=== PATIENT | female | born 1945 | race Two or more races ===

== ENCOUNTER 2018-09-16 06:09 | Day surgery (SDC) | payer MEDICARE, OTHER ==
--- NOTE | 2018-09-14 10:20 | Pre-Procedure Note/Attestation ---
Pre-Procedure Note/Attestation Complete Prior to Procedure Planned Procedure: left Procedure Narrative: phaco with IOL Indications for Procedure Pre-Operative Diagnosis: cataract Attestation I attest that I discussed the nature of the procedure; its benefits; risks and complications; and alternatives (and the risks and benefits of such alternatives ), prior to the procedure, with the patient (or the patient's legal personal banking representative). I attest that, if there was a reasonable possibility of needing a blood transfusion, the patient (or the patient's legal personal banking representative) was given the [facility] standardized written summary, pursuant to the Mick Chireno Blood Safety Act ([place] Health and Safety Code # 1645, as amended). I attest that I re-evaluated the patient just prior to the surgery and that there has been no change in the patient's H&P, except as documented below: Jimi Alvarado MD Sep 14, 2018 10:20
--- NOTE | 2018-09-14 11:08 | Opthalmology H&P ---
Ophthalmology H&P H&P Chief Complaint: decreased vision in left eye HPI Vision Affects Ability to: read, focus/use eyes together, manage personal affairs HPI Narrative blurry vision Exam Visual Acuity: OD: 20/80 20/160 Tension: OD: 18 os;18 Eye Exam: normal OU: external exam, palpebral fissure-width, marginal reflex distance, levator function, corneas, anterior chambers; findings: lens Assessment/Plan Diagnosis: (1) Posterior subcapsular age-related cataract of left eye Treatment Plan: cataract extraction w/ lens implant Goals of Treatment: improvement of vision, enhance quality of life Attestation Attestation The risks and benefits of the surgery as well as alternative procedures were explained to the patient in detail. Jiim Alvarado MD Sep 14, 2018 11:08
[~2018-09-16] VITALS: Ht 154.9 cm; Wt 53.1 kg
[2018-09-16] VITALS (8 sets, daily range): BP systolic 112–159; BP diastolic 48–80
[2018-09-16] MEDS ORDERED: Proparacaine 0.5% Opth Soln 15ml LEFT EYE ONE (07:00)
[2018-09-16] MEDS ORDERED: Akten 3.5% 1ml Btl LEFT EYE ONE (07:00)
[2018-09-16] MEDS ORDERED: Tetracaine 0.5% Opth 4ml Soln LEFT EYE ONE (07:00)
[2018-09-16] MEDS: Phenylephrine 10% Opth Soln 5ml LEFT EYE SCH ×3 (09:03→09:19)
[2018-09-16] MEDS: Cyclopentolate 1% Opth Sol 2ml LEFT EYE SCH ×3 (09:03→09:19)
[2018-09-16] MEDS: Tropicamide 1% Opth 15ml Soln LEFT EYE SCH ×3 (09:03→09:19)
[2018-09-16] MEDS: Tobramycin Op Soln 0.3% 5ml LEFT EYE SCH ×3 (09:05→09:19)
[2018-09-16] MEDS: Diclofenac Sod 0.1% Op Soln LEFT EYE SCH ×3 (09:07→09:20)
[2018-09-16] MEDS ORDERED: LISINOPRIL-HCT1 EAC2 ORAL (09:29)
[2018-09-16] MEDS ORDERED: ASPIR 8181 MG ORAL (09:30)
[2018-09-16] MEDS ORDERED: LANTUS SOL100 UNIT/1 SUBQ (09:30)
[2018-09-16] MEDS ORDERED: PROLENSA1.6 ML OP (09:31)
[2018-09-16] MEDS ORDERED: [UNRECOGNIZED DRUG - OTHER] OP (09:33)
[2018-09-16] MEDS ORDERED: Povidone-Iodine 5% opth solution ONE (09:47)
[2018-09-16] MEDS ORDERED: EPINEPHrine 1mg/1ml Amp ONE (09:47)
[2018-09-16] MEDS ORDERED: Sodium Hyaluronate 14 mg/ml 0.85ml ONE (09:47)
[2018-09-16] MEDS ORDERED: BSS 500ml btl ONE (09:47)
[2018-09-16] MEDS ORDERED: BSS 15ml BTL ONE (09:47)
[2018-09-16] MEDS ORDERED: LR 1000ml 1,000 ML IVLG SCH (09:58)
[2018-09-16] MEDS ORDERED: Pred Forte 1% Opth Susp 1ml ONE (10:00)
[2018-09-16] MEDS ORDERED: Propofol 200mg/20ml IV ONE (10:00)
[2018-09-16] MEDS ORDERED: Meperidine 50mg/ml Inj(FOR RIGORS ONLY) IVP PRN (10:00)
[2018-09-16] MEDS ORDERED: fentaNYL 100 mcg/2 mL IV PRN (10:00)
[2018-09-16] MEDS ORDERED: Metoclopramide 10mg/2ml Inj IVP PRN (10:00)
[2018-09-16] MEDS ORDERED: Hydromorphone 0.5mg/0.5ml inj IVP PRN (10:00)
[2018-09-16] MEDS ORDERED: Pilocarpine 2% Opth 15ml Soln ONE (10:00)
[2018-09-16] MEDS ORDERED: Dexamethasone 4mg/ml vial ONE (10:00)
[2018-09-16] MEDS ORDERED: Midazolam 2mg/2ml Inj IVP PRN (10:00)
[2018-09-16] MEDS ORDERED: DiphenhydrAMINE 50mg/ml Inj IVP PRN (10:00)
[2018-09-16] MEDS ORDERED: Lidocaine 1% MPF 10mg/ml 5ml ONE (10:00)
[2018-09-16] MEDS ORDERED: Ketorolac 30mg Inj IV PRN ×2 (10:00)
[2018-09-16] MEDS ORDERED: LORazepam Inj 2mg/ml 1ml IV PRN (10:00)
[2018-09-16] MEDS ORDERED: Norco 5mg/325mg tab ORAL PRN (10:00)
[2018-09-16] MEDS ORDERED: HYDROcodone/Acetamin 7.5/325 tab ORAL PRN (10:00)
[2018-09-16] MEDS ORDERED: LR 1000ml ONE (10:00)
[2018-09-16] MEDS ORDERED: Atropine Sulfate 0.4mg/ml inj IVP PRN (10:00)
[2018-09-16] MEDS ORDERED: Maxitrol Opth Oint 3.5gm ONE (10:00)
[2018-09-16] MEDS ORDERED: oxyCODONE HCL/Acetaminophen 5/325mg ORAL PRN (10:00)
--- NOTE | 2018-09-16 10:01 | Anethesia Preoperative Eval ---
Anesthesia Pre-op PMH/ROS General Date of Evaluation: Sep 16, 2018 Time of Evaluation: 09:49 Anesthesiologist: Jennifer ASA Score: ASA 3 Mallampati Score Class I : Soft palate, uvula, fauces, pillars visible Class II: Soft palate, uvula, fauces visible Class III: Soft palate, base of uvula visible Class IV: Only hard plate visible Mallampati Classification: Class II Surgeon: Jenny Diagnosis: CAT OS Surgical Procedure: CAT EXT IOL OS Anesthesia History: none Family History: no anesthesia problems Allergies: Coded Allergies: PENICILLINS (Verified Allergy, Severe, hives, 09/16/18) CIPROFLOXACIN (Verified Allergy, Intermediate, itching, 09/16/18) LATEX (Verified Allergy, Intermediate, itching, 09/16/18) CRAB (Verified Adverse Reaction, Intermediate, "throat closes up", ) Cantaloupe (Verified Adverse Reaction, Intermediate, "throat closes up", 09/16/18) Medications: see eMAR Patient NPO?: Yes Past Medical History Cardiovascular: Reports: HTN, other - HL Endocrine: Reports: DM HEENT: Reports: cataract (L), cataract (R) PSxH Narrative: Vitrectomy OS Anesthesia Pre-op Phys. Exam Physician Exam Last Vital Signs Date Time Temp Pulse Resp B/P (MAP) Pulse Ox O2 Delivery O2 Flow Rate FiO2 09/16/18 09:26 97.6 68 18 159/80 100 Room Air Constitutional: NAD Neurologic: CN 2-12 intact Cardiovascular: RRR Respiratory: CTA Gastrointestinal: S/NT/ND Airway Exam Mallampati Score: Class II MO: limited ROM: limited Teeth: missing, intact Anesthesia Pre-op A/P Risk Assessment & Plan Assessment: ASA 3 Plan: GA Status Change Before Surgery: No Pritesh Rodriguez MD Sep 16, 2018 10:01
--- NOTE | 2018-09-16 10:03 | Immediate Post-Op Evaluation ---
Immediate Post-Op Evalulation Immediate Post-Op Evalulation Procedure: CAT EXT IOL OS Date of Evaluation: Sep 16, 2018 Time of Evaluation: 10:48 IV Fluids: 200 LR Blood Products: 0 Estimated Blood Loss: 1 Urinary Output: 0 Blood Pressure Systolic: 120 Blood Pressure Diastolic: 56 Pulse Rate: 62 Respiratory Rate: 16 O2 Sat by Pulse Oximetry: 99 Temperature (Fahrenheit): 97.9 Pain Score (1-10): 1 Nausea: No Vomiting: No Complications 0 Patient Status: awake, reacts, patent, none Hydration Status: adequate Pritesh Rodriguez MD Sep 16, 2018 10:03
--- NOTE | 2018-09-16 10:05 | 48 Hour Post Anesthesia Eval ---
Post Anesthesia Evaluation Procedure: CAT EXT IOL OS Date of Evaluation: Sep 16, 2018 Time of Evaluation: 12:53 Blood Pressure Systolic: 132 0: 74 Pulse Rate: 61 Respiratory Rate: 18 Temperature (Fahrenheit): 98.2 O2 Sat by Pulse Oximetry: 99 Airway: patent Nausea: No Vomiting: No Pain Intensity: 1 Hydration Status: adequate Cardiopulmonary Status: STABLE Mental Status/LOC: patient returned to baseline Follow-up Care/Observations: 0 Post-Anesthesia Complications: 0 Follow-up care needed: ready to discharge Pritesh Rodriguez MD Sep 16, 2018 10:05
--- NOTE | 2018-09-17 12:49 | Brief Operative Note ---
Immediate Post Operative Note Operative Note Chief Complaint: blurry vision Pre-op Diagnosis: cataract, OS Procedure: phaco with IOL, os Post-op Diagnosis: pseudophakia Post-op Diagnosis: same as pre-op Findings: consistent w/pre-op dx studies Surgeon: Jenny Anesthesiologist: Alton Anesthesia: MAC Specimen: none Complications: none Condition: stable Fluids: LR Estimated Blood Loss: none Drains: none Implant(s) used?: Yes Jimi Alvarado MD Sep 17, 2018 12:49
--- NOTE | 2018-09-17 12:51 | Operative Note - PDOC ---
Operative Note Operative Note Date of Operation/Procedure: Sep 16, 2018 Chief Complaint: blurry vision Pre-op Diagnosis: cataract, OS Procedure: phaco with IOL, os Post-op Diagnosis: pseudophakia Post-op Diagnosis: same as pre-op Operative Findings: consistent w/pre-op dx studies Surgeon: Jenny Anesthesiologist: Alton Anesthesia: MAC Specimen: none Complications: none Condition: stable Fluids: LR Estimated Blood Loss: none Drains: none Implant(s) used?: Yes Indications for Procedure cataract Description of Procedure This patient has been complaining visually significant cataract in the affected eye with the best corrected visual acuity under moderate glare conditions worse. The patient complains of difficulties with glare in performing activities of daily living and wants to manage personal affairs with comfort and accuracy and see well enough to move with safety at home and outdoors. The risks, benefits and alternatives of the procedure were discussed with the patient in the office prior to scheduling surgery. All questions from the patient were answered after the surgical procedure was explained in detail. The risks of the procedure as explained to the patient include, but are not limited to, pain, infection, bleeding, loss of vision, retinal detachment, need for further surgery, loss of lens nucleus, double vision, etc. Alternative procedures were discussed which include, to do nothing or seek a second opinion. Informed consent for this procedure was obtained from the patient. The patient was referred to a primary care physician for a cardiopulmonary clearance prior to surgery, after proper evaluation was done patient was properly scheduled for outpatient surgery. The patient was brought to the operating room where the anesthesiologist established I.V. lines and cardiac monitoring leads. Mild intravenous sedation was administered. The patient was then prepared with a 5% solution of povidone -iodine to the conjunctival fornix and lashes, and a 5% solution of povidone- iodine to the lids and periorbital skin. The patient was then draped in the usual sterile fashion. A lid speculum was then placed in the operative eye. A keratome blade was then used to create a biplanar incision into the anterior chamber. Viscoelastics was then instilled into the anterior chamber. A capsulorrhexis was then fashioned with an utrata forceps. BSS and a G-27 cannula were then used to hydrodissect and hydro delineate the lens. Paracentesis incision was made at 3 o'clock with sharp blade. The phacoemulsification unit, after being properly adjusted and tested, was then used to emulsify the nucleus followed by aspiration and irrigation of residual cortical material. Healon was then instilled into the anterior chamber. The corneal wound was then enlarged to the size of the optic with the radha keratome blade. The intraocular lens was then inspected for right power and size and thought to be satisfactory. Then the lens was gently placed in the capsular bag. Positioning within the capsular bag was confirmed by direct visualization. Optic centration was accomplished with a Sinskey hook. Viscoelastics was removed from the anterior chamber using the irrigation and aspiration unit. The corneal wound was then tested for leaks and none were found. The lid speculum were then removed. Sponge and needle counts were correct. An eye patch and shield were placed over the operative eye. The patient was taken to the recovery room in stable condition. There were no complications. The patient tolerated the procedure well. The patient was then transferred to the ambulatory surgery unit in stable and satisfactory condition , was given detailed written instructions and asked to follow up in the office the next day. Jimi Alvarado MD Sep 17, 2018 12:51
== END 2018-09-16 12:25 | disposition home or self-care (01) ==
LOC: SUR 06:09
DX: H25.042 Posterior subcapsular polar age-related cataract, left eye (principal); E11.22 Type 2 diabetes mellitus with diabetic chronic kidney disease; I12.9 Hypertensive chronic kidney disease with stage 1 through stage 4 chronic kidney disease, or unspecified chronic kidney disease; N18.3 Chronic kidney disease, stage 3 (moderate); E03.9 Hypothyroidism, unspecified; Z88.1 Allergy status to other antibiotic agents; Z91.040 Latex allergy status; Z88.0 Allergy status to penicillin; Z91.018 Allergy to other foods
CPT/HCPCS: 66984; 82962; J0171; J1100; J2250; J2704; J3370; V2632; 94003; 94150

== ENCOUNTER 2018-12-02 05:33 | Day surgery (SDC) | payer MEDICARE, OTHER ==
--- NOTE | 2018-11-29 14:32 | Pre-Procedure Note/Attestation ---
Pre-Procedure Note/Attestation Complete Prior to Procedure Planned Procedure: right Procedure Narrative: Cataract extraction With Intraocular Lens Implant Right Eye Indications for Procedure Pre-Operative Diagnosis: Cataract Right Eye Attestation I attest that I discussed the nature of the procedure; its benefits; risks and complications; and alternatives (and the risks and benefits of such alternatives ), prior to the procedure, with the patient (or the patient's legal passenger service representative). I attest that, if there was a reasonable possibility of needing a blood transfusion, the patient (or the patient's legal passenger service representative) was given the [facility] standardized written summary, pursuant to the Mick Carey Blood Safety Act ([place] Health and Safety Code # 1645, as amended). I attest that I re-evaluated the patient just prior to the surgery and that there has been no change in the patient's H&P, except as documented below: Jimi Alvarado MD Nov 29, 2018 14:32
--- NOTE | 2018-11-29 14:37 | Opthalmology H&P ---
Ophthalmology H&P H&P Chief Complaint: decreased vision in right eye HPI Vision Affects Ability to: read Past Ocular History: retinal problems - PDR/ Macula Edema OU HPI Narrative Blurry Vision Exam Visual Acuity: OD 20/125 OS 20/30 Tension: OD 18 OS 14 Eye Exam: normal OU: external exam, palpebral fissure-width, marginal reflex distance, levator function, corneas, anterior chambers, lens - Cortical Cataract OD; findings: lens - Cortical Cataract OD, fundus exam - pdr/macular edema ou Assessment/Plan Treatment Plan: cataract extraction w/ lens implant Goals of Treatment: improvement of vision, enhance quality of life Attestation Attestation The risks and benefits of the surgery as well as alternative procedures were explained to the patient in detail. Jimi Alvarado MD Nov 29, 2018 14:37
[2018-12-02] VITALS (8 sets, daily range): BP systolic 141–161; BP diastolic 54–72
[~2018-12-02] VITALS: Ht 154.9 cm; Wt 54.4 kg
[~2018-12-02 05:33] MED LIST: ASPIR 8181 MG ORAL; LANTUS SOL100 UNIT/1 SUBQ; LISINOPRIL-HCT1 EAC2 ORAL; PROLENSA1.6 ML OP; [UNRECOGNIZED DRUG - OTHER] OP
[2018-12-02] MEDS: Cyclopentolate 1% Opth Sol 2ml RIGHT EYE SCH ×3 (06:58→07:20)
[2018-12-02] MEDS: Tobramycin Op Soln 0.3% 5ml RIGHT EYE SCH ×3 (06:59→07:21)
[2018-12-02] MEDS: Tropicamide 1% Opth 15ml Soln RIGHT EYE SCH ×3 (06:59→07:20)
[2018-12-02] MEDS: Phenylephrine 10% Opth Soln 5ml RIGHT EYE SCH ×3 (06:59→07:21)
[2018-12-02] MEDS ORDERED: Tetracaine 0.5% Opth 4ml Soln LEFT EYE ONE (07:00)
[2018-12-02] MEDS ORDERED: Diclofenac Sod 0.1% Op Soln RIGHT EYE SCH (07:00)
[2018-12-02] MEDS ORDERED: Tetracaine 0.5% Opth 4ml Soln RIGHT EYE ONE (07:00)
[2018-12-02] MEDS ORDERED: Dexamethasone 4mg/ml vial ONE (07:00)
[2018-12-02] MEDS ORDERED: Cyclopentolate 1% Opth Sol 2ml LEFT EYE SCH (07:00)
[2018-12-02] MEDS ORDERED: Akten 3.5% 1ml Btl LEFT EYE ONE (07:00)
[2018-12-02] MEDS ORDERED: Proparacaine 0.5% Opth Soln 15ml RIGHT EYE ONE (07:00)
[2018-12-02] MEDS ORDERED: Diclofenac Sod 0.1% Op Soln LEFT EYE SCH (07:00)
[2018-12-02] MEDS ORDERED: Pred Forte 1% Opth Susp 1ml ONE (07:00)
[2018-12-02] MEDS ORDERED: Pilocarpine 1% Opth 15ml Soln ONE (07:00)
[2018-12-02] MEDS ORDERED: Phenylephrine 10% Opth Soln 5ml LEFT EYE SCH (07:00)
[2018-12-02] MEDS ORDERED: Maxitrol Opth Oint 3.5gm ONE (07:00)
[2018-12-02] MEDS ORDERED: Tobramycin Op Soln 0.3% 5ml LEFT EYE SCH (07:00)
[2018-12-02] MEDS ORDERED: Tropicamide 1% Opth 15ml Soln LEFT EYE SCH (07:00)
[2018-12-02] MEDS ORDERED: Proparacaine 0.5% Opth Soln 15ml LEFT EYE ONE (07:00)
[2018-12-02] MEDS ORDERED: Akten 3.5% 1ml Btl RIGHT EYE ONE (07:00)
[2018-12-02] MEDS ORDERED: Lidocaine 4% Amp ONE (07:21)
[2018-12-02] MEDS ORDERED: Carbachol 0.01% Op Soln 1.5ml vial ONE (07:21)
[2018-12-02] MEDS ORDERED: EPINEPHrine 1mg/1ml Amp ONE (07:21)
[2018-12-02] MEDS ORDERED: acetaZOLAMIDE 500mg Inj ONE (07:21)
[2018-12-02] MEDS ORDERED: Lidocaine 2% MPF 5ml Vial INJ ONE (07:21)
[2018-12-02] MEDS ORDERED: BSS 500ml btl ONE (07:22)
[2018-12-02] MEDS ORDERED: Sodium Hyaluronate 14 mg/ml 0.85ml ONE (07:22)
[2018-12-02] MEDS ORDERED: Povidone-Iodine 5% opth solution ONE (07:22)
[2018-12-02] MEDS ORDERED: Bupivacaine 0.75% 30ml vial INJ ONE (07:22)
[2018-12-02] MEDS ORDERED: BSS 15ml BTL ONE (07:22)
[2018-12-02] MEDS ORDERED: LR 1000ml ONE (07:30)
[2018-12-02] MEDS ORDERED: Midazolam 2mg/2ml Inj ONE (07:37)
[2018-12-02] MEDS ORDERED: fentaNYL 100 mcg/2 mL IV ONE (07:37)
--- NOTE | 2018-12-02 08:03 | Anethesia Preoperative Eval ---
Anesthesia Pre-op PMH/ROS General Date of Evaluation: Dec 02, 2018 Time of Evaluation: 07:30 Anesthesiologist: power ASA Score: ASA 3 Mallampati Score Class I : Soft palate, uvula, fauces, pillars visible Class II: Soft palate, uvula, fauces visible Class III: Soft palate, base of uvula visible Class IV: Only hard plate visible Mallampati Classification: Class II Surgeon: nasima Diagnosis: cataract Surgical Procedure: cataract extraction with IOL Anesthesia History: none Family History: no anesthesia problems Allergies: Coded Allergies: PENICILLINS (Verified Allergy, Severe, hives, 09/16/18) CIPROFLOXACIN (Verified Allergy, Intermediate, itching, 09/16/18) LATEX (Verified Allergy, Intermediate, itching, 09/16/18) CRAB (Verified Adverse Reaction, Intermediate, "throat closes up", ) Cantaloupe (Verified Adverse Reaction, Intermediate, "throat closes up", 09/16/18) Medications: see eMAR Patient NPO?: Yes NPO Date: Dec 02, 2018 NPO Time: 00:01 Past Medical History Cardiovascular: Reports: HTN, CAD Pulmonary: Denies: asthma, COPD, JOY, other Gastrointestinal/Genitourinary: Reports: GERD; Denies: CRI, ESRD, other Neurologic/Psychiatric: Denies: dementia, CVA, depression/anxiety, TIA, other Endocrine: Reports: DM, hypothyroidism HEENT: Reports: cataract (R); Denies: cataract (L), glaucoma, OMAHA (L), OMAHA (R), other Hematology/Immune: Denies: anemia, DVT, bleeding disorder, other Musculoskeletal/Integumentary: Denies: OA, RA, DJD, DDD, edema, other PSxH Narrative: left eye surgery Anesthesia Pre-op Phys. Exam Physician Exam Last Vital Signs Date Time Temp Pulse Resp B/P (MAP) Pulse Ox O2 Delivery O2 Flow Rate FiO2 12/02/18 07:29 97.6 60 20 161/71 100 Room Air Constitutional: NAD Neurologic: CN 2-12 intact Cardiovascular: RRR Respiratory: CTA Gastrointestinal: S/NT/ND Airway Exam Mallampati Classification 2 Mallampati Score: Class II MO: full ROM: full Dentures: no upper, no lower Anesthesia Pre-op A/P Studies Pre-op Studies: EKG - sr Risk Assessment & Plan Plan: mac Pre-Antibiotics Drug: none Kristen Alexis CRNA Dec 02, 2018 08:03
[2018-12-02] MEDS ORDERED: fentaNYL 100 mcg/2 mL IV PRN (08:15)
--- NOTE | 2018-12-02 08:56 | Immediate Post-Op Evaluation ---
Immediate Post-Op Evalulation Immediate Post-Op Evalulation Procedure: right eye cataract extraction Date of Evaluation: Dec 02, 2018 Time of Evaluation: 08:32 IV Fluids: 600 Blood Pressure Systolic: 154 Blood Pressure Diastolic: 67 Pulse Rate: 71 Respiratory Rate: 12 O2 Sat by Pulse Oximetry: 98 Temperature (Fahrenheit): 97.4 Nausea: No Vomiting: No Complications none Patient Status: awake, reacts, patent Hydration Status: adequate Drug: none Kristen Alexis CRNA Dec 02, 2018 08:56
--- NOTE | 2018-12-02 11:27 | Immediate Post-Op Evaluation ---
Immediate Post-Op Evalulation Immediate Post-Op Evalulation Procedure: right eye cataract extraction Date of Evaluation: Dec 02, 2018 Time of Evaluation: 11:27 Nausea: No Vomiting: No Elena Christensen MD Dec 02, 2018 11:27
--- NOTE | 2018-12-02 11:53 | 48 Hour Post Anesthesia Eval ---
Post Anesthesia Evaluation Procedure: right eye cataract extraction Date of Evaluation: Dec 02, 2018 Time of Evaluation: 11:52 Blood Pressure Systolic: 149 0: 54 Pulse Rate: 71 Respiratory Rate: 14 O2 Sat by Pulse Oximetry: 96 Airway: patent Nausea: No Vomiting: No Hydration Status: adequate Cardiopulmonary Status: stable Mental Status/LOC: patient returned to baseline Post-Anesthesia Complications: none Follow-up care needed: N/A Kristen Alexis CRNA Dec 02, 2018 11:53
--- NOTE | 2018-12-04 09:53 | Brief Operative Note ---
Immediate Post Operative Note Operative Note Chief Complaint: blurry vision Pre-op Diagnosis: Cataract Right Eye Procedure: phaco with IOL, OD Post-op Diagnosis: Pseudophakia Post-op Diagnosis: same as pre-op Findings: consistent w/pre-op dx studies Surgeon: Jenny Anesthesiologist: Vanesa Anesthesia: MAC Specimen: none Complications: none Condition: stable Fluids: LR Estimated Blood Loss: none Drains: none Implant(s) used?: Yes Jimi Alvarado MD Dec 04, 2018 09:53
--- NOTE | 2018-12-04 09:54 | Operative Note - PDOC ---
Operative Note Operative Note Date of Operation/Procedure: Dec 02, 2018 Chief Complaint: blurry vision Pre-op Diagnosis: Cataract Right Eye Procedure: phaco with IOL, OD Post-op Diagnosis: Pseudophakia Post-op Diagnosis: same as pre-op Operative Findings: consistent w/pre-op dx studies Surgeon: Jenny Anesthesiologist: Vanesa Anesthesia: MAC Specimen: none Complications: none Condition: stable Fluids: LR Estimated Blood Loss: none Drains: none Implant(s) used?: Yes Indications for Procedure cataract Description of Procedure This patient has been complaining visually significant cataract in the affected eye with the best corrected visual acuity under moderate glare conditions worse. The patient complains of difficulties with glare in performing activities of daily living and wants to manage personal affairs with comfort and accuracy and see well enough to move with safety at home and outdoors. The risks, benefits and alternatives of the procedure were discussed with the patient in the office prior to scheduling surgery. All questions from the patient were answered after the surgical procedure was explained in detail. The risks of the procedure as explained to the patient include, but are not limited to, pain, infection, bleeding, loss of vision, retinal detachment, need for further surgery, loss of lens nucleus, double vision, etc. Alternative procedures were discussed which include, to do nothing or seek a second opinion. Informed consent for this procedure was obtained from the patient. The patient was referred to a primary care physician for a cardiopulmonary clearance prior to surgery, after proper evaluation was done patient was properly scheduled for outpatient surgery. The patient was brought to the operating room where the anesthesiologist established I.V. lines and cardiac monitoring leads. Mild intravenous sedation was administered. The patient was then prepared with a 5% solution of povidone -iodine to the conjunctival fornix and lashes, and a 5% solution of povidone- iodine to the lids and periorbital skin. The patient was then draped in the usual sterile fashion. A lid speculum was then placed in the operative eye. A keratome blade was then used to create a biplanar incision into the anterior chamber. Viscoelastics was then instilled into the anterior chamber. A capsulorrhexis was then fashioned with an utrata forceps. BSS and a G-27 cannula were then used to hydrodissect and hydro delineate the lens. Paracentesis incision was made at 3 o'clock with sharp blade. The phacoemulsification unit, after being properly adjusted and tested, was then used to emulsify the nucleus. Residual cortical material was aspirated with the irrigation and aspiration unit. Healon was then instilled into the anterior chamber. The corneal wound was then enlarged to the size of the optic with the radha keratome blade. The intraocular lens was then inspected for right power and size and thought to be satisfactory. Then the lens was gently placed in the capsular bag. Positioning within the capsular bag was confirmed by direct visualization. Optic centration was accomplished with a Sinskey hook. Viscoelastics was removed from the anterior chamber using the irrigation and aspiration unit. The corneal wound was then tested for leaks and none were found. The lid speculum were then removed. Sponge and needle counts were correct. An eye patch and shield were placed over the operative eye. The patient was taken to the recovery room in stable condition. There were no complications. The patient tolerated the procedure well. The patient was then transferred to the ambulatory surgery unit in stable and satisfactory condition , was given detailed written instructions and asked to follow up in the office the next day. Jimi Alvarado MD Dec 04, 2018 09:54
== END 2018-12-02 09:45 | disposition home or self-care (01) ==
LOC: SUR 05:33
DX: H25.011 Cortical age-related cataract, right eye (principal); E11.9 Type 2 diabetes mellitus without complications; E03.9 Hypothyroidism, unspecified; E11.22 Type 2 diabetes mellitus with diabetic chronic kidney disease; I12.9 Hypertensive chronic kidney disease with stage 1 through stage 4 chronic kidney disease, or unspecified chronic kidney disease; N18.9 Chronic kidney disease, unspecified; I25.10 Atherosclerotic heart disease of native coronary artery without angina pectoris; K21.9 Gastro-esophageal reflux disease without esophagitis; D64.9 Anemia, unspecified; Z88.1 Allergy status to other antibiotic agents; Z88.0 Allergy status to penicillin; Z91.013 Allergy to seafood; Z91.018 Allergy to other foods
CPT/HCPCS: 66984; 82962; J0171; J1100; J2250; J3010; J3370; V2632; 94003; 94150